=== PATIENT | male | born 1960 | race Caucasian/White ===

== ENCOUNTER 2022-08-09 14:15 | Observation (INO) ==
[2022-08-09 14:36] LABS: ABS Basophils 0.1 10^3/uL (0.0-0.1); ABS Eosinophils 0.1 10^3/uL (0.0-0.5); ABS Lymphocytes 1.2 10^3/uL (1.0-4.8); ABS Monocytes 0.4 10^3/uL (0.0-1.1); ABS Nucleated RBC 0.01 10^3/ul; Hemoglobin 16.1 g/dL (13.2-16.3); Lymphocyte % 10.3 %; Mean Corpuscular Hemoglobin 32.9 pg (27-33); Mean Corpuscular Hgb Conc 33.6 g/dL (31-36); Mean Corpuscular Volume 97.9 fL (80-97); Mean Platelet Volume 7.6 fL (7.5-11.2); Platelet Count 239 10^3/uL (150-450); Red Cell Distribution Width 14.6 % (12-17); White Blood Count 11.8 10^3/uL (3.6-10.2)
[2022-08-09] MEDS ORDERED: Iodixanol (CONTRAST) 320 MG/ML 100 ML SDV IV ONE (14:40)
[2022-08-09 14:54] LABS: Albumin 4.2 g/dL (3.2-5.2); Albumin/Globulin Ratio 1.4 (1-3); Calcium 9.4 mg/dL (8.6-10.3); Creatinine, Serum 1.31 mg/dL (0.67-1.17); Potassium 4.1 mmol/L (3.5-5.0); Total Bilirubin 0.4 mg/dL (0.2-1.0); Total Protein 7.2 g/dL (6.4-8.9); eGFR CKD-EPI 62.3 (>60)
[2022-08-09] MEDS ORDERED: Aspirin EC 81 mg TAB.EC (enteric coated) PO ONE (15:23)
[2022-08-09 15:59] LABS: High Sensitivity Troponin 1 Hr 4 pg/mL (<20)
[2022-08-09] MEDS ORDERED: Enoxaparin 40 MG/0.4 ML SYR SUBCUT SCH (18:00)
[2022-08-10 08:08] LABS: ABS Basophils 0.1 10^3/uL (0.0-0.1); ABS Eosinophils 0.4 10^3/uL (0.0-0.5); ABS Lymphocytes 1.9 10^3/uL (1.0-4.8); ABS Monocytes 0.6 10^3/uL (0.0-1.1); ABS Neutrophils 5.3 10^3/uL (1.5-7.6); ABS Nucleated RBC 0.01 10^3/ul; Eosinophil % 4.3 %; Hematocrit 43.7 % (38-53); Hemoglobin 15.3 g/dL (13.2-16.3); Lymphocyte % 22.9 %; Mean Corpuscular Hemoglobin 33.6 pg (27-33); Mean Corpuscular Hgb Conc 34.9 g/dL (31-36); Mean Corpuscular Volume 96.2 fL (80-97); Mean Platelet Volume 7.3 fL (7.5-11.2); Nucleated Red Blood Cells % 0.1 /100 WBC (0.0-0.4); Platelet Count 211 10^3/uL (150-450); Red Blood Count 4.54 10^6/uL (4.06-5.63); Red Cell Distribution Width 14.4 % (12-17); White Blood Count 8.1 10^3/uL (3.6-10.2)
[2022-08-10 08:29] LABS: Calcium 8.7 mg/dL (8.6-10.3); Creatinine, Serum 0.87 mg/dL (0.67-1.17); Potassium 4.1 mmol/L (3.5-5.0); eGFR CKD-EPI 98.8 (>60)
[2022-08-10 14:18] VITALS: BP 157/85
== END 2022-08-10 16:30 | disposition home or self-care (01) ==
LOC: EDHOLD 14:15 → ED 14:15 → MEDTELE 18:11
PROVIDERS: ADMIT Hospitalist; ATTEND Hospitalist